=== PATIENT | female | born 1990 | race Caucasian/White ===

== ENCOUNTER → 2017-07-04 | Outpatient (CLI) | payer OTHER ==
[~2017-07-04] VITALS: Ht 167.6 cm; Wt 97.5 kg
--- NOTE | ~2017-07-04 | S ---
[facility] [place] [address] SURGICAL PATH RPT PROCEDURE Name: MORIAH BROOKS Room #: REG MAX Shaikh.#: [id number] Admission: 07/04/17 Date of : 89 Discharge: Report #: [id number] Path Case #: [id number] PATHOLOGY REPORT COLLECTION DATE: 07/04/2017 RECEIVED DATE: 07/04/2017 SUBMITTING PHYS: Dr. Manuel Brito OTHER PHYS: Dr. Philip Allen SPECIMEN(S) RECEIVED: A.Random colon R/O microscopic colitis * * * * * * * * * * * * FINAL DIAGNOSIS: Large intestine mucosa, random colon, endoscopic biopsy: - Focal mild active colitis, please see comment. - Negative for dysplasia or malignancy. COMMENT: Examination shows crypts at regular intervals with rare focus of active cryptitis. There are no crypt architectural abnormalities, crypt abscesses, or areas of ulceration present. Lamina propria shows mildly increased cellularity with lymphocytes, plasma cells, as well as eosinophils. The subepithelial collagen layer is not thickened. There is a focal increase in intraepithelial lymphocytes identified; however, in a single focus. Overall, the findings are suggestive of focal active colitis, either of self-limited type or resolving type. Other entities in the differential diagnosis include medication-induced colitis, bowel preparation or acute diverticulitis. Clinical correlation is suggested. Co-review: Dr. Nikkie Matthews (hematopathologist) (IUV:mgr; 07/05/2017) PATHOLOGIST: Mesha Condon M.D. REPORT ELECTRONICALLY SIGNED BY: Mesha Condon M.D. DATE/TIME: 07/05/2017 16:55 * * * * * * * * * * * * GROSS PATHOLOGY: The specimen is received in formalin, labeled "Moriah Brooks and random colon", are multiple vasquez soft tissue the aggregate measures 0.5 x 0.4 x 0.2 cm, entirely submitted in A1. (SWS; 07/04/2017) CLINICAL HISTORY: [facility] [place] [address] SURGICAL PATH RPT PROCEDURE Name: BROOKS,MORIAH Room #: REG [facility] M.R.#: [id number] Admission: 07/04/17 Date of : 89 Discharge: Report #: [id number] Path Case #: [id number] Abdomen pain, change in bowel habits, diarrhea rule out microscopic colitis INITIAL CPT CODE(S): A; 77680 Professional services performed by [facility] at [address] , [place] [address] Technical services performed by [facility] at [address] [place] [address], [facility] [address] [address]. [facility] [address] [address] PHONE: [phone] DIRECTOR: Scotty Bundy M.D. * * * END OF REPORT * * *
--- NOTE | ~2017-07-04 | P ---
[facility] [place] [address] PROCEDURE REPORT Name: JENNIFER BRUCE Room #: REG [facility] [id number] Admission: 07/04/17 Attend Phys: Manuel Denson Discharge: Date of : 89 Report #: [id number] THIS REPORT FOR: //name// CC: Philip Brito DATE OF SERVICE: 07/04/2017 PROCEDURE PERFORMED: Colonoscopy with biopsies. HISTORY OF PRESENT ILLNESS: The patient is a 26-year-old female with chronic diarrhea for several months, also intermittent abdominal pain and cramping. KUB and ultrasound were reportedly negative. She does have a history of irritable bowel syndrome, in the past have been constipated, but after her last child, has been having diarrhea. She denies any blood in her stools. Stool studies have been negative. She averages 5 bowel movements per day. No family history of colon cancer or inflammatory bowel disease. PROCEDURE: The risks and benefits of the procedure were explained to the patient, those risks including, but not limited to bleeding, perforation, and the risk of sedation. She understood these risks and gave informed consent. Sedation was given using propofol per anesthesia. Next, a digital rectal exam was initially performed, which was normal. Next, using a standard Fujinon colonoscope, the scope was placed in the patient's anus and advanced under direct vision to the cecum. The overall prep was excellent. The cecum and ileocecal valve were normal in appearance. Terminal ileum was intubated and normal in appearance. Ascending, transverse, descending and sigmoid colon were all normal. Random biopsies were obtained today to rule out the possibility of microscopic colitis. The rectal mucosa was normal. On retroflexion, no abnormalities were noted. The scope was then withdrawn and the procedure terminated. The patient tolerated the procedure well. IMPRESSION: Normal colonoscopy. RECOMMENDATIONS: 1. Await biopsy results. 2. We will check endomysial antibody to rule out the possibility of celiac sprue. 3. If biopsies and labs are negative, then we would recommend Xifaxan t.i.d. for 2 weeks. [facility] [address] [place] [address] PROCEDURE REPORT Name: JENNIFER BRUCE Room #: REG MAX Guevara#: [id number] Admission: 07/04/17 Attend Phys: Manuel Denson Discharge: Date of : 89 Report #: [id number] Thank you for allowing me to participate in her care. <ELECTRONICALLY SIGNED> By: Manuel Brito MD 07/05/17 1210 1040 1255 Manuel Brito MD /nt
== END | disposition home or self-care (01) ==
LOC: GI 07:55
DX: K52.9 Noninfective gastroenteritis and colitis, unspecified (principal); F41.8 Other specified anxiety disorders; Z87.19 Personal history of other diseases of the digestive system; Z88.0 Allergy status to penicillin; Z98.890 Other specified postprocedural states
CPT/HCPCS: 62110; 62900

== ENCOUNTER → 2017-09-09 | Outpatient (CLI) | payer OTHER ==
[~2017-09-09] MED LIST: HYDROCODONE-AP1 EAC6 PO; ONDANSETRON HCL4 M2 PO
== END ==
LOC: ULTRA 15:26
DX: M79.661 Pain in right lower leg (principal); M79.662 Pain in left lower leg; M79.89 Other specified soft tissue disorders; R60.0 Localized edema

== ENCOUNTER → 2017-11-29 | Outpatient (CLI) | payer OTHER | LOC: NUC 10:47 | DX: K21.9 Gastro-esophageal reflux disease without esophagitis (principal) ==

== ENCOUNTER 2017-12-08 07:16 | Observation (INO) | payer OTHER ==
[~2017-12-08] VITALS: Ht 167.6 cm; Wt 99.8 kg
[2017-12-08] VITALS (10 sets, daily range): BP systolic 102–138; BP diastolic 56–93
--- NOTE | ~2017-12-08 | S ---
[facility] [place] [place] [address] SURGICAL PATH RPT PROCEDURE Name: MORIAH BROOKS Room #: 449-I [facility] Tess Guevara#: [id number] Admission: 12/08/17 Date of : 89 Discharge: 12/09/17 Report #: [id number] Path Case #: [id number] PATHOLOGY REPORT COLLECTION DATE: 12/08/2017 RECEIVED DATE: 12/08/2017 SUBMITTING PHYS: Dr. Ry Ross, DO OTHER PHYS: Dr. Philip Allen SPECIMEN(S) RECEIVED: A.Gallbladder * * * * * * * * * * * * FINAL DIAGNOSIS: Gallbladder, cholecystectomy: - Mild chronic cholecystitis. - Cholesterolosis. (IUV:db; 12/09/2017) PATHOLOGIST: Mesha Condon M.D. REPORT ELECTRONICALLY SIGNED BY: Mesha Condon M.D. DATE/TIME: 12/09/2017 15:16 * * * * * * * * * * * * GROSS PATHOLOGY: Received in formalin labeled "Moriah Brooks gallbladder," is a 5.2 x 2.6 x 0.7 cm, previously opened gallbladder with vasquez-green and smooth serosal surfaces. Opening the gallbladder reveals red-yellow stippled mucosa and an average wall thickness of 0.1 cm. Calculi are not present and no masses are noted grossly. [employer] sections from the body and fundus are submitted along with the proximal margin in cassette A1. ([facility]; 12/08/2017) CLINICAL HISTORY: Biliary dyskinesia. INITIAL CPT CODE(S): A; 91232 Professional services performed by [facility] at [facility] [address], [place] [address] Technical services performed by [facility] at [address] [place] [address]. [facility] [address] [place] [address] SURGICAL PATH RPT PROCEDURE Name: MORIAH BROOKS Room #: 449-I PEYMAN Guevara#: [id number] Admission: 12/08/17 Date of : 89 Discharge: 12/09/17 Report #: [id number] Path Case #: [id number] [facility] [address] [address] PHONE: [phone] DIRECTOR: Scotty Bundy M.D. * * * END OF REPORT * * *
[2017-12-08 07:30] LABS: URINE BILIRUBIN NEGATIVE (Negative); URINE BLOOD 2+ (Negative); URINE CLARITY CLEAR; URINE COLOR YELLOW; URINE GLUCOSE-RANDOM* NEGATIVE (Negative); URINE KETONES NEGATIVE (Negative); URINE LEUKOCYTES NEGATIVE (Negative); URINE NITRITE NEGATIVE (Negative); URINE PROTEIN (DIPSTICK) NEGATIVE (Negative); URINE SPECIFIC GRAVITY 1.025 (1.005-1.035); URINE UROBILINOGEN 0.2 E.U./dl (0.2-1.0)
[2017-12-08 07:39] LABS: SQUAMOUS >10 Many /LPF (0-3); URINE RBC 3-10 Few /HPF (0-2); URINE WBC 0-5 Rare /HPF (0-5)
[2017-12-08 07:40] LABS: CASTS None Seen /LPF (None Seen); CRYSTALS None Seen /LPF (None Seen); MUCUS 0-3 Light strn/LPF (None Seen)
[2017-12-08 07:55] LABS: ABSOLUTE NEUTROPHILS 5.3 thou/uL (1.4-8.2); BASOPHILS 0.3 % (0.0-2.0); EOSINOPHILS 0.9 % (0.0-3.0); HEMATOCRIT 43.4 % (37.0-47.0); HEMOGLOBIN 14.9 gm/dL (12.0-15.0); LYMPHOCYTES 28.1 % (24.0-44.0); MCH 32.5 pg (26.0-34.0); MCHC 34.4 g/dL (28.0-37.0); MCV 94.6 fL (80.0-100.0); MONOCYTES 6.8 % (1.0-8.0); PLATELET COUNT 264 thou/uL (150-400); POLYS 63.9 % (36.0-66.0); RBC 4.59 mil/uL (4.20-5.00); WBC 8.3 thou/uL (4.0-11.0)
[2017-12-08 08:06] LABS: ANION GAP 10 mmol/L (7-16); BUN 13 mg/dL (7-18); CALCIUM 9.3 mg/dL (8.5-10.1); CHLORIDE 104 mmol/L (98-107); CO2 26 mmol/L (21-32); GLUCOSE 98 mg/dL (74-106); POTASSIUM 3.8 mmol/L (3.5-5.1); SODIUM 140 mmol/L (136-145)
[2017-12-08 08:12] LABS: ALBUMIN 3.9 g/dL (3.4-5.0); DIRECT BILIRUBIN < 0.1 mg/dL (<0.1-0.3); LIPASE 125 U/L (73-393); SGOT 21 U/L (15-37); SGPT 23 U/L (30-65); TOTAL BILIRUBIN 0.3 mg/dL (<0.1-1.0); TOTAL PROTEIN 7.7 g/dL (6.4-8.2)
[2017-12-08] MEDS ORDERED: HYDROCODONE-AP1 EAC6 PO (14:56)
[2017-12-08] MEDS ORDERED: ONDANSETRON HCL4 M2 PO (14:56)
[2017-12-09 03:50] VITALS: BP 167/60
[2017-12-09 07:20] VITALS: BP 119/62
[2017-12-09 08:12] VITALS: BP 119/62
== END 2017-12-09 09:44 | disposition home or self-care (01) ==
LOC: ER 07:16 → EROBS 08:39 → 4W 08:39
PROVIDERS: Emergency Medicine
DX: K82.8 Other specified diseases of gallbladder (principal); K58.9 Irritable bowel syndrome, unspecified; F41.9 Anxiety disorder, unspecified
CPT/HCPCS: 50010; 50101; 50249; 50411; 50555; 50558; 50962; 51975; 52265; 52266; 53307; 53310; 54022; 54118; 55245; 55317; 56462; 56525; 56526; 62110; 62900; 70005

== ENCOUNTER → 2018-02-21 | Outpatient (CLI) | payer OTHER | LOC: ULTRA 12:41 | DX: N83.201 Unspecified ovarian cyst, right side (principal) ==

== ENCOUNTER → 2018-03-29 | Outpatient (CLI) | payer OTHER | LOC: ULTRA 12:44 | DX: N83.01 Follicular cyst of right ovary (principal); N83.02 Follicular cyst of left ovary; R10.2 Pelvic and perineal pain ==

== ENCOUNTER → 2018-06-26 | Outpatient (CLI) | payer OTHER | LOC: ULTRA 13:40 | DX: N85.8 Other specified noninflammatory disorders of uterus (principal); R10.2 Pelvic and perineal pain ==

== ENCOUNTER → 2018-07-06 | Outpatient (CLI) | payer OTHER | LOC: ULTRA 10:26 | DX: O43.891 Other placental disorders, first trimester (principal); Z3A.01 Less than 8 weeks gestation of pregnancy ==

== ENCOUNTER → 2018-08-10 | Outpatient (CLI) | payer OTHER | LOC: ULTRA 07:28 | DX: K52.9 Noninfective gastroenteritis and colitis, unspecified (principal); R10.31 Right lower quadrant pain ==

== ENCOUNTER → 2018-12-04 | Outpatient (CLI) | payer OTHER | LOC: ULTRA 14:00 | DX: M54.40 Lumbago with sciatica, unspecified side (principal) ==

== ENCOUNTER → 2019-05-28 | Outpatient (CLI) | payer OTHER | LOC: ULTRA 16:03 | DX: R10.2 Pelvic and perineal pain (principal); R10.32 Left lower quadrant pain; Z97.5 Presence of (intrauterine) contraceptive device ==

== ENCOUNTER → 2019-06-08 | Outpatient (CLI) | payer OTHER | LOC: ULTRA 08:15 | DX: R10.9 Unspecified abdominal pain (principal); Z90.49 Acquired absence of other specified parts of digestive tract ==

== ENCOUNTER 2019-09-11 10:57 | Emergency (ER) | payer OTHER ==
[~2019-09-11] VITALS: Ht 167.6 cm; Wt 104.3 kg
[2019-09-11 11:32] LABS: URINE BILIRUBIN NEGATIVE (Negative); URINE BLOOD NEGATIVE (Negative); URINE CLARITY CLEAR; URINE COLOR YELLOW; URINE GLUCOSE-RANDOM* NEGATIVE (Negative); URINE KETONES NEGATIVE (Negative); URINE LEUKOCYTES-REFLEX NEGATIVE (Negative); URINE NITRITE-REFLEX NEGATIVE (Negative); URINE PROTEIN (DIPSTICK) NEGATIVE (Negative); URINE SPECIFIC GRAVITY >= 1.030 (1.005-1.035); URINE UROBILINOGEN 0.2 E.U./dl (0.2-1.0)
[2019-09-11] MEDS ORDERED: BRINTELLIX10 MG PO (11:37)
[2019-09-11] MEDS ORDERED: SPIRONOLACTONE25 M1 PO (11:38)
[2019-09-11] MEDS ORDERED: XANAX1 MG PO (11:38)
[2019-09-11] MEDS ORDERED: ARMOUR THYROID30 M1 PO (11:39)
[2019-09-11] MEDS ORDERED: PEPCID20 MG PO (13:03)
[2019-09-11] MEDS ORDERED: PREDNISONE 20 M20 MG PO (13:03)
[2019-09-11 14:03] LABS: HEMATOCRIT 43.4 % (37.0-47.0); HEMOGLOBIN 14.6 gm/dL (12.0-15.0); MCH 32.4 pg (26.0-34.0); MCHC 33.7 g/dL (28.0-37.0); MCV 96.1 fL (80.0-100.0); RBC 4.52 mil/uL (4.20-5.00); RDW 13.1 % (10.5-14.5); WBC 9.7 thou/uL (4.0-11.0)
[2019-09-11 14:13] LABS: POTASSIUM 4.3 mmol/L (3.5-5.1)
[2019-09-11 14:19] LABS: ALBUMIN 3.8 g/dL (3.4-5.0); TOTAL BILIRUBIN 0.3 mg/dL (<0.1-1.0); TOTAL PROTEIN 7.6 g/dL (6.4-8.2)
[2019-09-11 15:44] VITALS: BP 119/69
== END 2019-09-11 15:45 | disposition home or self-care (01) ==
LOC: ER 10:57
PROVIDERS: Emergency Medicine
DX: T36.4X5A Adverse effect of tetracyclines, initial encounter (principal); L50.9 Urticaria, unspecified; M54.9 Dorsalgia, unspecified; K21.9 Gastro-esophageal reflux disease without esophagitis; Z90.89 Acquired absence of other organs; Z87.01 Personal history of pneumonia (recurrent); Z88.1 Allergy status to other antibiotic agents; Z90.49 Acquired absence of other specified parts of digestive tract; Y92.89 Other specified places as the place of occurrence of the external cause

== ENCOUNTER 2019-10-01 16:08 | Emergency (ER) | payer OTHER ==
[~2019-10-01] VITALS: Ht 167.6 cm; Wt 99.8 kg
[~2019-10-01 16:08] MED LIST changes: +ARMOUR THYROID30 M1 PO; +BRINTELLIX10 MG PO; +PEPCID20 MG PO; +PREDNISONE 20 M20 MG PO; +SPIRONOLACTONE25 M1 PO; +XANAX1 MG PO
[2019-10-01] MEDS ORDERED: PREDNISONE 20 M20 MG PO (18:49)
[2019-10-01] MEDS ORDERED: FLOVENT DISKU100 MCG INH (18:49)
[2019-10-01 20:13] VITALS: BP 126/70
== END 2019-10-01 20:25 | disposition home or self-care (01) ==
LOC: ER 16:08
DX: J98.01 Acute bronchospasm (principal); J06.9 Acute upper respiratory infection, unspecified; K21.9 Gastro-esophageal reflux disease without esophagitis; F32.9 Major depressive disorder, single episode, unspecified; F41.9 Anxiety disorder, unspecified; Z90.89 Acquired absence of other organs; Z90.49 Acquired absence of other specified parts of digestive tract; Z88.6 Allergy status to analgesic agent; Z88.1 Allergy status to other antibiotic agents

== ENCOUNTER → 2019-11-05 | Outpatient (CLI) | payer OTHER ==
[~2019-11-05] MED LIST changes: +FLOVENT DISKU100 MCG INH
--- NOTE | 2019-11-07 17:07 | PATH ---
[facility] [address] [place] [address] PATHOLOGY RPT PROCEDURE Name: MORIAH BROOKS Room #: REG MAX RoqueAdalidKenneth.#: [id number] Admission: 11/05/19 Date of : 89 Discharge: Report #: [id number] Path Case #: [id number] [facility] Accession Number: [id number] . 01 Material submitted: . PART A: small bowel - BIOPSY OF SMALL BOWEL TO R/O CELIAC PART B: stomach - BIOPSY OF GASTRIC/RANDOM TO R/O H. PYLORI PART C: colon - RANDOM RIGHT COLON BIOPSY TO R/O MICROSCOPIC COLITIS. Modifiers: right PART D: colon - RANDOM LEFT COLON BIOPSY TO R/O MICROSCOPIC COLITIS. Modifiers: left . 01 Clinical history: . Abdominal pain, diarrhea, GERD, rectal bleeding A. Rule out celiac B. Rule out H. pylori C/D. Rule out microscopic colitis . 02 Diagnosis: A. Small bowel mucosa, small bowel rule out celiac disease, endoscopic biopsy: - Mild nonspecific chronic duodenitis associated with fundic-type metaplasia, consistent with peptic duodenitis. - Negative for villous blunting or increased intraepithelial lymphocytes. . B. Gastric mucosa, gastric random, endoscopic biopsy: - Mild chronic inflammation. - Negative for intestinal metaplasia or atrophy. - Negative for Helicobacter pylori (properly-controlled immunohistochemical stain performed). . C. Large intestinal mucosa, random right colon, rule out microscopic colitis, endoscopic biopsy: - Focal nonspecific hyperplastic changes. - Negative for active colitis. - Negative for microscopic colitis. - Negative for dysplasia or malignancy. . D. Large intestinal mucosa, random left colon, endoscopic biopsy: - Focal nonspecific hyperplastic changes. - Negative for acute colitis. - Negative for microscopic colitis. - Negative for dysplasia or malignancy. . (IUV:mml; 11/07/2019) [facility] 11/07/2019 1546 Local . [address] [address] PATHOLOGY RPT PROCEDURE Name: MORIAH BROOKS Room #: REG CLI [facility].#: [id number] Admission: 11/05/19 Date of : 89 Discharge: Report #: [id number] Path Case #: [id number] Comment: C and D. Findings may be suggestive of bowel preparation, resolved or medication/drug-induced colitis, or chronic diverticulitis. Please correlate clinically. . (IUV:mml; 11/07/2019) . 02 Electronically signed: . Mesha Condon MD, Pathologist NPI- [id number] . 01 Gross description: . . A. The specimen is received in formalin, labeled "Brooks, Moriah, BX of small bowel" and consists of multiple fragments of vasquez tissue measuring 0.9 x 0.6 x 0.3 cm in aggregate which are entirely submitted in A1. . B. The specimen is received in formalin, labeled "Brooks, Moriah, BX of random gastric" and consists of multiple fragments of vasquez tissue measuring 1.3 x 0.5 x 0.3 cm in aggregate which are entirely submitted in B1. . C. The specimen is received in formalin, labeled "Brooks, Moriah, random right BX" and consists of multiple fragments of vasquez tissue measuring 1.0 x 0.6 x 0.2 cm in aggregate which are entirely submitted in C1. . D. The specimen is received in formalin, labeled "Brooks, Moriah, random left BX" and consists of multiple fragments of vasquez tissue measuring 1.3 x 0.5 x 0.2 cm in aggregate which are entirely submitted in D1. (SDY; 11/06/2019) [facility]U 11/06/2019 1137 Local . 02 Pathologist provided ICD-10: K29.80, K29.50, R10.9, D19.7, K21.0, K62.5 . 02 CPT . 142609, 087617, 015410, 036204, C47310 Specimen Comment: A courtesy copy of this report has been sent to [phone], [phone] Specimen Comment: [id number] Specimen Comment: Report sent to / DR LIMON Performed at: [address] [facility], [place] [id number] MD Matthew Wei MD Phone: [phone] Performed at: [address] [id number] MD Mesha Condon MD Phone: [phone]
== END | disposition home or self-care (01) ==
LOC: GI 06:46
DX: K92.1 Melena (principal); K64.4 Residual hemorrhoidal skin tags; K29.50 Unspecified chronic gastritis without bleeding; K31.89 Other diseases of stomach and duodenum; K29.80 Duodenitis without bleeding; K21.0 Gastro-esophageal reflux disease with esophagitis; E03.9 Hypothyroidism, unspecified; F32.9 Major depressive disorder, single episode, unspecified; F41.9 Anxiety disorder, unspecified; Z98.890 Other specified postprocedural states; Z79.899 Other long term (current) drug therapy; Z90.49 Acquired absence of other specified parts of digestive tract; Z88.8 Allergy status to other drugs, medicaments and biological substances
CPT/HCPCS: 62110; 62900

== ENCOUNTER → 2019-12-21 | Outpatient (CLI) | payer OTHER | LOC: RAD 12:19 | DX: K31.89 Other diseases of stomach and duodenum (principal); M54.9 Dorsalgia, unspecified ==

== ENCOUNTER → 2020-02-05 | Outpatient (CLI) | payer OTHER | LOC: RAD 16:06 | DX: M25.562 Pain in left knee (principal) ==

== ENCOUNTER → 2020-02-13 | Outpatient (CLI) | payer OTHER | LOC: MRI 10:23 | DX: M25.562 Pain in left knee (principal) ==

== ENCOUNTER → 2020-03-20 | Outpatient (CLI) | payer OTHER ==
[2020-03-20 16:06] LABS: URINE BILIRUBIN NEGATIVE (Negative); URINE BLOOD NEGATIVE (Negative); URINE CLARITY CLEAR; URINE COLOR YELLOW; URINE GLUCOSE-RANDOM* NEGATIVE (Negative); URINE KETONES NEGATIVE (Negative); URINE LEUKOCYTES-REFLEX TRACE (Negative); URINE NITRITE-REFLEX NEGATIVE (Negative); URINE PROTEIN (DIPSTICK) NEGATIVE (Negative); URINE UROBILINOGEN 0.2 E.U./dl (0.2-1.0)
== END ==
LOC: LAB 15:47
DX: R30.0 Dysuria (principal)

== ENCOUNTER → 2020-05-27 | Outpatient (CLI) | payer OTHER | LOC: ULTRA 15:22 | DX: N63.10 Unspecified lump in the right breast, unspecified quadrant (principal) ==